=== PATIENT | female | born 1975 | race Caucasian/White ===

== ENCOUNTER → 2016-09-05 | Outpatient (CLI) | payer OTHER ==
[~2016-09-05] MED LIST: 3N1 COMMODE MC; ASPI-781 PO; BACTDS PO; CARI350T29 PO; DOXY100T20 PO; HYDR-3504 PO; TRAM50TA2 PO; WALK1EAC23 MC
--- NOTE | 2016-09-06 09:30 | RADRPT ---
PROCEDURE: XR Pelvis and right Hip. CLINICAL INDICATION: Pain TECHNIQUE: 3 views of the pelvis and right hip are available for review. COMPARISON: 03/18/2016 FINDINGS: Right hip arthroplasty is again seen, in stable anatomic position. No acute fracture or dislocation is identified. The patient is also noted to be status post surgical fusion at L5-S1. No radiodens e foreign body is seen. Bony mineralization is normal. IMPRESSION: 1. Stable appearance of right hip arthroplasty. 2. No acute fracture or dislocation. RPTAT: QQ .Saud Casas MD, MD Date Time Electronically viewed and signed by .Saud Casas MD, MD on 09/06/2016 09:29 .R/
== END | disposition home or self-care (01) ==
LOC: HKI 09:08
PROVIDERS: ATTEND Orthopaedic Surgery
DX: Z47.1 Aftercare following joint replacement surgery (principal); Z96.641 Presence of right artificial hip joint
CPT/HCPCS: 73502; Z7500; G0463